=== PATIENT | female | born 1930 | race Caucasian/White ===

== ENCOUNTER 2017-04-02 17:43 | Emergency (ER) | payer MEDICARE, OTHER ==
[~2017-04-02] VITALS: Ht 152.4 cm; Wt 74.5 kg
[2017-04-02] VITALS (8 sets, daily range): BP systolic 145–178; BP diastolic 63–79; PULSE 64–74; RESP 14–18; O2SAT 94–97
[~2017-04-02 17:43] MED LIST: ASPI-973 PO; ATOR40TA69 PO; CARV25TA2 PO; CHOL100045 PO; CYCL10TA9 PO; FERR325T39 PO; FURO40TA4 PO; GABA-504 PO; HYDR-3740 PO; HYG25 PO; NITR4.9S5 BUCCAL; ONDA-53 PO; POTA20TA7 PO; PREG100C PO; SERT25TA6 PO
[2017-04-02] MEDS ORDERED: POTA10TA14 PO (18:16)
--- NOTE | 2017-04-02 18:27 | ED.REPORT ---
HPI-General Illness Date of Service Apr 02, 2017 ED Provider: Jadiel Torres MD Pt is an 86 year old female with a history of A-fib, chronic cough, and CHF who presents to the ED via EMS complaining of generalized weakness onset 4 days ago. She c/o associated vomiting (1x 4 days ago), malaise, nausea onset 4 days ago, decreased appetite, increased SOB, non-productive cough, intermittent chest tightness, constipation, mild abdominal pain, and increased heart rate. She denies chest pain, fever, dysuria, and diarrhea. Pt reports that her heart rate was 107 today. Her last bowel movement was 2 days ago. She also reports a sore that has been present on her stomach "that has not healed". Nursing Notes Stated Complaint: GENERALIZED WEAKNESS Chief Complaint: General Complaint Nursing Notes Reviewed: Yes Allergies: Coded Allergies: meperidine (Verified Allergy, Severe, hallucinations, 06/16/15) oxycodone (Verified Allergy, Severe, hallucinations, 06/16/15) Penicillins (Verified Allergy, Intermediate, Rash,Itching,, 06/16/15) 02/15-PATIENT TAKING CEPHALEXIN AT HOME metoclopramide HCl (Verified Allergy, Unknown, 06/16/15) paroxetine (Verified Allergy, Unknown, unknown, 06/16/15) ropinirole (Verified Allergy, Unknown, 06/16/15) tetracycline (Verified Allergy, Unknown, 06/16/15) trazodone (Verified Allergy, Unknown, 06/16/15) ezetimibe (Verified Adverse Reaction, Severe, severe leg pain, 06/16/15) baclofen (Verified Adverse Reaction, Unknown, hard to describe, 06/16/15) doxepin (Verified Adverse Reaction, Unknown, unknown, 06/16/15) Scheduled Aspirin (Aspirin) 81 Mg Tablet 81 MG PO HS Atorvastatin Calcium (Atorvastatin Calcium) 40 Mg Tablet 40 MG PO HS Carvedilol (Carvedilol) 25 Mg Tablet 25 MG PO BID Chlorthalidone (Chlorthalidone) 25 Mg Tablet 25 MG PO QAM Cholecalciferol (Vitamin D3) (Vitamin D) 1,000 Unit Capsule 2,000 UNIT PO DAILY Ferrous Sulfate (Iron) 325 Mg Tablet 325 MG PO DAILY Furosemide (Furosemide) 40 Mg Tablet 40 MG PO DAILYWL Gabapentin (Gabapentin) 400 Mg Capsule 800 MG PO TID Potassium Chloride ER (Klor-Con M10) 10 Meq Tablet 10 MEQ PO DAILY Sertraline HCl (Sertraline) 25 Mg Tablet 25 MG PO DAILYWL Scheduled PRN Hydrocodone-Acetaminophen 10-325 mg (Hydrocodone-Acetaminophen 10-325 mg) 1 Each Tablet 0.5-1 TAB PO Q6HR PRN PRN For Pain Nitroglycerin Pegram (Nitroglycerin Pegram) 4.9 Gm Pegram 1 SPRAY BUCCAL DIRECTED PRN PRN For Chest Pain Ondansetron (Ondansetron) 4 Mg Tablet 4 MG PO Q4 PRN PRN For Nausea General Time Seen by MD: 18:19 Chief Complaint Weakness Hx Obtained From: EMS ([facility]) Arrived By: Ambulance Sudden in Onset?: No Onset Occurred: 4 days ago Symptom Duration: Since onset Location: : Abdomen Quality: Painful Radiation: : Does not radiate Severity: Current: Moderate Severity: Maximum: Moderate Recent Healthcare: No recent doctor visit, No recent hospitalization Similar Sx Previous: No Past Medical History Past Medical History Notes: Discharge diagnoses 03/04/15 (hospitalized for 6 days): 1. Acute on chronic anemia, symptomatic, presumably secondary to slow gastrointestinal blood loss. 2. Exertional shortness of breath, resolved, and secondary to symptomatic anemia. 3. Atrial fibrillation on Coumadin. Coumadin is discontinued. 4. Edema for six months, echo pending. 5. Left heel infection, present on admission, cephalexin continued. Past Medical History Reflux disease. Restless legs syndrome. Possible GI bleed - recent admission for acute on chronic anemia. Aortic regurgitation and mitral regurgitation. History of scarlet fever. Reports: Congestive heart failure, Hyperlipidemia, Hypertension Reports: Atrial fibrillation Past Surgical History Lower lumbar spine surgery. Left hip joint surgery. Right hip arthroplasty. Smoking History Never Smoker Social History Alcohol Use: Denies alcohol use Drug Use: Denies drug use Other Social History: Lives alone Ambulatory Status Independent Review of Systems + Decreased appetite + Chest tightness + Elevated heart rate Full Review of Systems Constitutional: Reports: Malaise, Weakness - generalized, Denies: Fever Respiratory: Reports: Non-productive cough, Shortness of breath Cardiovascular: Denies: Chest pain GI: Reports: Abdominal pain (mild), Constipation, Nausea, Vomiting, Denies: Diarrhea Female: Denies: Dysuria Complete sys rev & neg: except as marked. Physical Exam Vital Signs Vital Signs Date Time Temp Pulse Resp B/P Pulse Ox O2 Delivery O2 Flow Rate FiO2 04/02/17 22:19 70 18 146/67 95 Room Air 04/02/17 22:15 70 146/67 95 Room Air 04/02/17 21:13 74 18 153/63 95 Room Air 04/02/17 20:00 64 14 165/66 95 Room Air 04/02/17 19:15 64 15 149/70 96 Room Air 04/02/17 18:42 66 15 145/64 97 Room Air 04/02/17 18:15 69 16 178/79 96 Room Air 04/02/17 17:56 36.8 70 17 163/71 94 Room Air Initial VS: Reviewed Head / Eyes: Atraumatic, Normocephalic Neck: Supple, Full range of motion Respiratory: Breath sounds normal, Clear to auscultation, No respiratory distress Extremities: Vascular intact, Neuro intact Skin: Warm, Dry, No cyanosis Neurologic: Alert, Oriented, Nonfocal Psychiatric: Mood/affect normal, Behavior normal General/Constitutional: Awake, Alert Mouth: Positive: Mucous membranes dry Cardiovascular: Heart rate NL, Regular rhythm Heart Sounds / Murmur: Positive: Systolic murmur present.. (II/ on right sternal border) Abdomen: Atraumatic, Soft, Non-tender, BS normoactive Small roung superficial ulcer on anterior abdominal wall that doesn't appear to be infected. Back: Atraumatic, Full range of motion, No CVA tenderness Interpretation & Diagnostics Lab Results Interpretation Result Diagram: 04/02/17183604/02/171836 Test 04/02/17 18:37 04/02/17 18:38 04/02/17 19:09 04/02/17 19:25 White Blood Count 7.1th/mm3 (3.8-10.1) Red Blood Count 4.37mil/mm3 (3.90-5.20) Hemoglobin 13.1g/dL (12.0-15.6) Hematocrit 38.7% (35.0-46.0) Mean Corpuscular Volume 88.6fL (81-100) Mean Corpuscular Hemoglobin 30.0pg (27.0-35.0) Mean Corpuscular Hemoglobin Concent 33.9% (32.0-37.0) Red Cell Distribution Width 13.6% (12.3-15.4) Platelet Count 243bil/L (150-400) Neutrophils (%) (Auto) 71.0% (40-74) Lymphocytes (%) (Auto) 18.6% (14-46) Monocytes (%) (Auto) 8.9% (4-12) Eosinophils (%) (Auto) 1.1% (0-5) Basophils (%) (Auto) 0.4% (0-3) Sodium Level 134mEq/L (134-144) Potassium Level 3.0mEq/L (3.5-5.2) Chloride Level 90mEq/L (97-108) Carbon Dioxide Level 29mmol/L (18-29) Blood Urea Nitrogen 29mg/dL (8-27) Creatinine 1.05mg/dL (0.57-1.00) Estimat Glomerular Filtration Rate 71mL/min (>59) Glucose Level 103mg/dL (60-99) Calcium Level 10.0mg/dL (8.5-10.1) Magnesium Level 2.0mg/dL (1.6-2.6) Total Bilirubin 0.4mg/dL (0.0-1.2) Aspartate Amino Transf (AST/SGOT) 17U/L (0-50) Alanine Aminotransferase (ALT/SGPT) 10U/L (0-32) Alkaline Phosphatase 58U/L (25-165) Troponin T < 0.010ug/L (0.0-0.011) Total Protein 7.5g/dL (6.4-8.4) Albumin 4.1g/dL (3.4-5.0) Hold Watson Top Tube Received (Received) Pro-B-Type Natriuretic Peptide 629.3pg/mL (0-738) Lipase 57U/L (13-60) Urine Color Straw (YELLOW) Urine Appearance Clear (CLEAR,HAZY) Urine pH 6.5 (5.0-8.0) Urine Specific [place] 1.010 (1.003-1.035) Urine Protein Negativemg/dL (NEG,TRACE) Urine Glucose (UA) Negativemg/dL (NEGATIVE) Urine Ketones Negativemg/dL (NEGATIVE) Urine Occult Blood Negative (NEGATIVE) Urine Nitrite Negative (NEGATIVE) Urine Bilirubin Negative (NEGATIVE) Urine Urobilinogen Normalmg/dL (NORMAL) Urine Leukocyte Esterase Negative (NEGATIVE) Urine RBC 0-2/hpf (0-2) Urine WBC 0-5/hpf (0-5) Urine Epithelial Cells None/hpf (NONE-MOD) Urine Crystals None seen (NONE SEEN) Urine Bacteria None/hpf (NONE-FEW) Urine Hyaline Casts None/lpf (NONE) Urine Granular Casts None seen (NONE SEEN) Urine Waxy Casts None seen (NONE SEEN) Urine Red Blood Cell Casts None seen (NONE SEEN) Urine White Blood Cell Casts None seen (NONE SEEN) Urine Mucus None seen (None Seen) Urine Trichomonas None seen (NONE SEEN) Urine Yeast None (NONE SEEN) Urinalysis Comment None Urine Culture Reflexed Not indicated ECG Interpretation ECG Interpretation: Sinus rhythm with a rate of 68 Atrial Premature complex LVH No acute change Time: 18:04 Interpreted by: ED physician X-Ray Chest Interpretation Chest Xray Interpretation: IMPRESSION: Large retrocardiac hiatal hernia. No acute cardiopulmonary disease. Dictated by: John Hinojosa M.D. on 04/02/2017 at 18:38 View: Portable, 1 view Interpretation / Wet Read by: Interpret - Radiologist Re-Eval/Medical Decision Med Decision/Clinical Course Gave NS 1L and KCL 40meq. pt improved, passed road test. considered CHF, ACS and acute infection as well as renal failure and electrolyte derangement. Other than dehydration and low K no significant acute findings. Source of Hx: Old records Time of Eval: 21:40 Patient Status: Condition improved Re-Evaluation/Progress Note: Pt rechecked. She is feeling better and passed the road test. Informed pt of plan for discharge. Pt understands and agrees with plan for discharge. F/U instructions and RTER warnings given. All questions addressed. Counseled Regarding: Diagnosis, Lab results, Need for follow-up, When/why to return to ED Discharge & Departure Primary Impression: Dehydration Additional Impression: Hypokalemia Disposition: Home Discharge Condition All VS Reviewed: Yes Condition: Stable Additional Instructions: Emergency Department today included interview, examination, labs review of past records chest x-ray and ECG. Evaluation indicated dehydration and low potassium. We gave her oral potassium and IV fluids. This has been helpful. Continue previous home medications with the addition of a second dose of oral potassium every day. Get adequate fluids. Follow-up with primary care later this week. Return emergency Department for fevers shaking chills chest pain shortness of breath or other new concerning symptoms. Referrals: Maykel Mendez DO (PCP) Scribe Attestation Portions of this note were transcribed by Leny Rivera. I, Dr. Torres personally performed the history, physical exam and medical decision-making; I reviewed and confirmed the accuracy of the information in the transcribed note. Signed by : Shelly Lantigua, 04/02/17. copies to: Maykel Mendez Donald L MD Apr 02, 2017 18:27 Leny Matthews Apr 02, 2017 19:00
--- NOTE | 2017-04-02 18:41 | DRSVH ---
PROCEDURE: X-RAY CHEST ONE VIEW, PORTABLE ([id number]) INDICATIONS: 86 year-old female with shortness of breath. TECHNIQUE: One view of the chest was acquired. COMPARISON: [facility], CR, XR CHEST 1VW (PORTABLE), 05/26/2016, 21:00. [facility], CR, XR CHEST 1VW (PORTABLE), 02/09/2016, 23:05. [facility], CR, XR CHEST 1VW (POR TABLE), 06/16/2015, 14:53. FINDINGS: Surgical changes and devices: Lumbar spine posterior fixation hardware is incompletely visualized. Lungs and pleura: No pleural effusions or pneumothorax. Lungs are clear. Mediastinum: There is a large retrocardiac hiatal hernia. Heart size is normal. There is aortic ath erosclerosis. Bones and chest wall: No suspicious bony lesions. Overlying soft tissues appear unremarkable. IMPRESSION: Large retrocardiac hiatal hernia. No acute cardiopulmonary disease. Dictated by: John Hinojosa M.D. on 04/02/2017 at 18:38 Approved by: John Hinojosa M.D. on 04/02/2017 at 18:38
[2017-04-02] MEDS ORDERED: 0.9% Sodium Chloride 500 ML IV ONE ×2 (19:05→20:35)
[2017-04-02] MEDS ORDERED: Ondansetron 2 mg/mL 2 mL Inj IVPUSH ONE (19:05)
[2017-04-02 19:07] LABS: BASOPHILS % (AUTO) 0.4 % (0-3); EOSINOPHILS % (AUTO) 1.1 % (0-5); MONOCYTES % (AUTO) 8.9 % (4-12); Mean Corpuscular Volume 88.6 fL (81-100); Platelet Count 243 bil/L (150-400)
[2017-04-02 19:11] LABS: TROPONIN T < 0.010 ug/L (0.0-0.011)
[2017-04-02 20:15] LABS: APPEARANCE,URINE CLEAR (CLEAR,HAZY); COLOR,URINE STRAW (YELLOW); OCCULT BLOOD,URINE NEGATIVE (NEGATIVE); PH,URINE 6.5 (5.0-8.0); UROBILINOGEN,URINE NORMAL (NORMAL)
[2017-04-02] MEDS ORDERED: Potassium Chloride 20 mEq/15 mL 15mL Oral Soln PO ONE (20:35)
== END 2017-04-02 22:19 | disposition home or self-care (01) ==
LOC: EDBD 17:43 → SED 17:43
DX: E86.0 Dehydration (principal); E87.6 Hypokalemia; I48.91 Unspecified atrial fibrillation; I50.9 Heart failure, unspecified; D62 Acute posthemorrhagic anemia; K21.9 Gastro-esophageal reflux disease without esophagitis; E78.5 Hyperlipidemia, unspecified; L98.491 Non-pressure chronic ulcer of skin of other sites limited to breakdown of skin; I12.9 Hypertensive chronic kidney disease with stage 1 through stage 4 chronic kidney disease, or unspecified chronic kidney disease; N18.9 Chronic kidney disease, unspecified; Z96.641 Presence of right artificial hip joint; Z79.01 Long term (current) use of anticoagulants; Z79.82 Long term (current) use of aspirin; Z88.8 Allergy status to other drugs, medicaments and biological substances; Z88.5 Allergy status to narcotic agent; Z88.0 Allergy status to penicillin; Z88.1 Allergy status to other antibiotic agents
CPT/HCPCS: 36415; 71010; 80053; 81000; 82948; 83690; 83735; 83880; 84484; 85025; 93005; 96361; 96374; 99285; J2405; J7040